=== PATIENT | female | born 1970 | race Caucasian/White ===

== ENCOUNTER 2021-10-29 10:45 | Emergency (ER) | payer OTHER, MEDICAID, SELFPAY ==
[2021-10-29] VITALS (7 sets, daily range): BP systolic 133–161; BP diastolic 73–86; PULSE 60–82; RESP 15–24; TEMP 36.6; O2SAT 96–100; BMI 35.4
--- NOTE | 2021-10-29 10:55 | DI.RAD.S_ITS ---
PROCEDURE: XR CHEST 1V INDICATIONS: chest pain TECHNIQUE: One view of the chest was acquired. COMPARISON: None. FINDINGS: Surgical changes and devices: None. Lungs and pleura: Lungs are clear. No pleural effusions or pneumothorax. Mediastinum: Mediastinal contours appear normal. Heart size is normal. Bones and chest wall: No suspicious bony lesions. Overlying soft tissues appear unremarkable. IMPRESSION: No acute cardiopulmonary findings Approved by: Reyes Duong M.D. on 10/29/2021 at 11:02
[2021-10-29 11:38] LABS: Add Manual Diff / Slide Review NO; Basophils Absolute Auto 100 /uL (0-100); Basophils Percent Auto 1.2 % (0-2); Eosinophils Absolute Auto 200 /uL (0-450); Eosinophils Percent Auto 3.5 % (2-4); Hematocrit 39.5 % (36-46); Hemoglobin 13.5 g/dL (12.0-16.0); Lymphocytes Absolute Auto 1700 /uL (1100-4500); Lymphocytes Percent Auto 24.4 % (25-40); Mean Corpuscular HGB Conc 34.2 % (30-36); Mean Corpuscular Hemoglobin 32.1 PG (26-34); Monocytes Absolute Auto 400 /uL (0-900); Neutrophils Absolute Auto 4600 /uL (1500-7000); Neutrophils Percent Auto 64.9 % (50-75); Platelet Count 335 X10^3/uL (150-400); Red Cell Distribution Width 13.5 % (11.6-14.8); White Blood Cell Count 7.1 X10^3/uL (4.5-11.0)
[2021-10-29 11:48] LABS: INR 0.9 (0.9-1.3); Prothrombin Time 10.3 SECONDS (10.1-12.7)
[2021-10-29 11:51] LABS: PTT Partial Thromboplastin Tim 28 SECONDS (26.4-36.2)
[2021-10-29 11:52] LABS: Alanine Aminotransferase 21 IU/L (<35); Albumin 4.5 g/dL (3.5-5.0); Albumin Globulin Ratio 1.4 (1.0-2.8); Alkaline Phosphatase 63 U/L (38-126); Aspartate Aminotransferase 36 IU/L (14-36); BUN Creatinine Ratio 18.4 (6-22); Bilirubin Total 0.9 mg/dL (0.2-1.3); Blood Urea Nitrogen 18 mg/dL (7-17); Calcium 8.9 mg/dL (8.4-10.2); Carbon Dioxide 27 mmol/L (22-32); Chloride 107 mmol/L (98-107); Creatine Kinase 108 U/L (30-135); Estimated Glomerular Filt Rate > 60 mL/min (>60); Globulin 3.2 g/dL (1.7-4.1); Glucose 96 mg/dL (70-100); HEMOLYSIS 26 (0-50); Lipase 83 U/L (23-300); Magnesium 2.4 mg/dL (1.6-2.3); Potassium 4.2 mmol/L (3.4-5.1); Sodium 139 mmol/L (137-145); Total Protein 7.7 g/dL (6.3-8.2)
[2021-10-29 12:03] LABS: Troponin I < 0.012 ng/mL (0.01-0.034)
[2021-10-29 12:06] LABS: Creatine Kinase MB 1.07 ng/mL (<2.37)
--- NOTE | 2021-10-29 13:44 | DI.US.S_ITS ---
PROCEDURE: US ABDOMEN LIMITED INDICATIONS: RUQ abdominal pain TECHNIQUE: Real-time focused scanning was performed of the abdomen, with image documentation. COMPARISON: [facility], CT, CT ABDOMEN WITHOUT CONTRAST, 01/19/2021, 17:25. FINDINGS: The liver demonstrates increased size. The liver demonstrates generalized mildly increased echogenicity. This decreases ultrasound sensitivity for detection of hepatic masses. No findings of gallstones or sludge are seen. The gallbladder wall is not thickened, measuring 3 mm or less. No specific pericholecystic fluid is seen. The sonographic Calero sign is negative. There is no biliary dilatation, the common bile duct measures 3 mm. No significant pancreatic abnormality is seen on these images. This study is limited by body habitus. IMPRESSION: The gallbladder demonstrates a normal sonographic appearance. No biliary dilatation is seen. The liver demonstrates increased echogenicity. This finding is nonspecific, yet it is most commonly attributed to fatty infiltration. Dictated by: Aditya Howell M.D. on 10/29/2021 at 13:27 Approved by: Aditya Howell M.D. on 10/29/2021 at 13:27
--- NOTE | 2021-10-29 13:46 | ED_ITS ---
HPI - Chest Pain <Matt Cummings PA-C - Last Filed: 10/29/21 19:46> General Chief Complaint: Chest Pain Stated Complaint: Chest pain Time Seen by Provider: 10/29/21 13:34 Source: patient Mode of arrival: Ambulatory Limitations: no limitations History of Present Illness HPI narrative: Patient is a 51-year-old female presenting to the emergency department today for evaluation of chest pain and elevated blood pressure. Patient explains that she was at work today when she began to experience sudden onset of 10/10 sharp centralized chest pain. She explains that her pain is now reduced to a 2/10 in intensity and is described as a pressure over the sternum. She states that while she was experiencing chest pain at work she took her blood pressure and noticed it was elevated, noting that her blood pressure usually is somewhere around ?128/72. Of note, patient denies any significant medical history and states she does not take any medications daily. Additionally, she denies any r ecent trauma or injury to the chest that could explain her discomfort. Patient states that during the initial episode of pain she did experience diaphoresis, however she states that she is not experience further episodes following the initial onset of pain. Further, she states that she has been experiencing right shoulder pain while she was in the waiting room. No fevers, chills, cough, shortness of breath, nausea, vomiting, diarrhea, constipation, abdominal pain, dysuria, hematuria, or any other concerning symptoms reported. No further concerns were voiced at this time. Related Data Allergies Allergy/AdvReac Type Severity Reaction Status Date / Time codeine Allergy Verified 10/29/21 10:52 Review of Systems <Matt Cummings PA-C - Last Filed: 10/29/21 19:46> Constitutional Constitutional: Denies chills, Denies fatigue, Denies fever(s), Denies frequent falls, Denies lethargy, Denies weakness and Reports other (Diaphoresis) Eyes Eyes: Denies loss of vision ENT Ears, Nose, Mouth, and Throat: Denies dizziness and Denies neck pain Cardiovascular Cardiovascular: Reports chest pain, Denies irregular heart rhythm, Denies lightheadedness, Denies palpitations, Denies dyspnea, Denies dyspnea on exertion, Denies orthopnea and Reports other (Elevated blood pressure) Respiratory Respiratory: Denies cough, Denies dyspnea, Denies dyspnea on exertion and Denies wheezing Gastrointestinal Gastrointestinal: Denies abdominal pain, Denies change in bowel habits, Denies diarrhea, Denies nausea and Denies vomiting Genitourinary Genitourinary: Denies hematuria, Denies flank pain, Denies urinary incontinence and Denies urinary urgency Musculoskeletal Musculoskeletal: Denies back pain, Reports arthralgias (Right shoulder discomfort), Denies muscle weakness, Denies neck pain, Denies numbness and Denies tingling Integumentary/Breasts Skin/Breast: Denies pruritus, Denies erythema, Denies rash and Denies wounds Neurologic Neurologic: Denies behavioral changes, Denies confusion, Denies dizziness, Denies frequent falls, Denies loss of vision, Denies numbness, Denies tingling and Denies weakness Psychiatric Psychiatric: Denies behavioral changes and Denies confusion Endocrine Endocrine: Denies fatigue and Denies palpitations Allergic/Immunologic Allergic/Immunologic: Denies wheezing Patient History <Matt Cummings PA-C - Last Filed: 10/29/21 19:46> Social History Smoking Status: Current some day smoker Smoking Status: Current some day smoker alcohol intake frequency: holidays/special occasions only Substance Use Type: does not use Exam <Matt Cummings PA-C - Last Filed: 10/29/21 19:46> Narrative Exam Narrative: GENERAL: 51 year old patient appears stated age. Well-developed patient, in no acute distress. HEAD: Atraumatic. Normocephalic. EYES: Pupils equal round and reactive. Extraocular motions intact. No scleral ic terus. No injection or drainage. ENT: Nose without bleeding, purulent drainage. Throat without erythema, tonsillar hypertrophy or exudate. Airway patent. NECK: Trachea midline. Non tender CARDIOVASCULAR: Regular rate and rhythm without murmurs, gallops, or rubs. RESPIRATORY: Clear to auscultation. Breath sounds equal bilaterally. No wheezes, rales, or rhonchi. GASTROINTESTINAL: Abdomen soft, nondistended. Tenderness to palpation appreciated in the right upper quadrant of the abdomen, no significant tenderness throughout the remaining quadrants of the abdomen. Positive Calero sign. EXTREMITIES: No edema or joint tenderness. MUSCULOSKELETAL: Tenderness to palpation over the sternum and manubrium and bilateral chest wall. No deformity or crepitance appreciated. BACK: Nontender without deformity or crepitance. No flank tenderness. NEURO: AOx3. SKIN: No rash or erythema of visible areas Initial Vital Signs Initial Vital Signs: Vital Signs Temperature 97.9 F 10/29/21 10:52 Pulse Rate 82 10/29/21 10:52 Respiratory Rate 15 10/29/21 10:52 Blood Pressure 154/82 H 10/29/21 10:52 Pulse Oximetry 96 10/29/21 10:52 Course <Matt Cummings PA-C - Last Filed: 10/29/21 19:46> Course Course Narrative: CBC, CMP, lipase, magnesium, PT/INR, PTT, troponin with repeat, chest x-ray, EKG, abdominal ultrasound obtained. Orders Ordered: ED Orders 10/29/21 13:44 US abdomen limited Stat 10/29/21 14:05 Trop I [Troponin I] Stat Vital Signs Vital signs: Vital Signs - 8 hr 10/29/21 13:32 10/29/21 13:33 10/29/21 14:00 Pulse Rate 81 81 61 Respiratory Rate 19 Blood Pressure 161/73 H Pulse Oximetry 96 97 98 10/29/21 14:01 10/29/21 14:30 10/29/21 15:00 Pulse Rate 60 63 64 Respiratory Rate 24 Blood Pressure 153/75 H 145/86 H 133/73 Pulse Oximetry 100 96 98 MDM - Chest Pain <Matt Cummings PA-C - Last Filed: 10/29/21 19:46> Lab Data Result diagrams: 10/29/21 11:25 10/29/21 11:25 Labs: Lab Results 10/29/21 10/29/21 10/29/21 Range/Units 11:25 11:25 11:25 WBC 7.1 (4.5-11.0) X10^3/uL RBC 4.20 (4.0-5.2) X10^6/uL Hgb 13.5 (12.0-16.0) g/dL Hct 39.5 (36-46) % MCV 94.0 (80-100) fL MCH 32.1 (26-34) PG MCHC 34.2 (30-36) % RDW 13.5 (11.6-14.8) % Plt Count 335 (150-400) X10^3/uL Neut % (Auto) 64.9 (50-75) % Lymph % (Auto) 24.4 L (25-40) % [place] % (Auto) 6.0 (3-14) % Eos % (Auto) 3.5 (2-4) % Baso % (Auto) 1.2 (0-2) % Neut # (Auto) 4600 (8787-6136) /uL Lymph # (Auto) 1700 (4377-9507) /uL [place] # (Auto) 400 (0-900) /uL Eos # (Auto) 200 (0-450) /uL Baso # (Auto) 100 (0-100) /uL PT 10.3 (10.1-12.7) SECONDS INR 0.9 (0.9-1.3) APTT 28 (26.4-36.2) SECONDS Sodium 139 (137-145) mmol/L Potassium 4.2 (3.4-5.1) mmol/L Chloride 107 (98-107) mmol/L Carbon Dioxide 27 (22-32) mmol/L BUN 18 H (7-17) mg/dL Creatinine 0.98 (0.52-1.04) mg/dL Estimated GFR > 60 (>60) mL/min BUN/Creatinine Ratio 18.4 (6-22) Glucose 96 (70-100) mg/dL Calcium 8.9 (8.4-10.2) mg/dL Magnesium 2.4 H (1.6-2.3) mg/dL Total Bilirubin 0.9 (0.2-1.3) mg/dL AST 36 (14-36) IU/L ALT 21 (<35) IU/L Alkaline Phosphatase 63 (38-126) U/L Total Creatine Kinase 108 (30-135) U/L CK-MB (CK-2) 1.07 (<2.37) ng/mL CK-MB (CK-2) Rel Index 1.0 L (1.5-5.0) % Troponin I < 0.012 (0.01-0.034) ng/mL Total Protein 7.7 (6.3-8.2) g/dL Albumin 4.5 (3.5-5.0) g/dL Globulin 3.2 (1.7-4.1) g/dL Albumin/Globulin Ratio 1.4 (1.0-2.8) Lipase 83 (23-300) U/L 10/29/21 Range/Units 14:05 WBC (4.5-11.0) X10^3/uL RBC (4.0-5.2) X10^6/uL Hgb (12.0-16.0) g/dL Hct (36-46) % MCV (80-100) fL MCH (26-34) PG MCHC (30-36) % RDW (11.6-14.8) % Plt Count (150-400) X10^3/uL Neut % (Auto) (50-75) % Lymph % (Auto) (25-40) % [place] % (Auto) (3-14) % Eos % (Auto) (2-4) % Baso % (Auto) (0-2) % Neut # (Auto) (9000-6346) /uL Lymph # (Auto) (0353-4536) /uL [place] # (Auto) (0-900) /uL Eos # (Auto) (0-450) /uL Baso # (Auto) (0-100) /uL PT (10.1-12.7) SECONDS INR (0.9-1.3) APTT (26.4-36.2) SECONDS Sodium (137-145) mmol/L Potassium (3.4-5.1) mmol/L Chloride (98-107) mmol/L Carbon Dioxide (22-32) mmol/L BUN (7-17) mg/dL Creatinine (0.52-1.04) mg/dL Estimated GFR (>60) mL/min BUN/Creatinine Ratio (6-22) Glucose (70-100) mg/dL Calcium (8.4-10.2) mg/dL Magnesium (1.6-2.3) mg/dL Total Bilirubin (0.2-1.3) mg/dL AST (14-36) IU/L ALT (<35) IU/L Alkaline Phosphatase (38-126) U/L Total Creatine Kinase (30-135) U/L CK-MB (CK-2) (<2.37) ng/mL CK-MB (CK-2) Rel Index (1.5-5.0) % Troponin I < 0.012 (0.01-0.034) ng/mL Total Protein (6.3-8.2) g/dL Albumin (3.5-5.0) g/dL Globulin (1.7-4.1) g/dL Albumin/Globulin Ratio (1.0-2.8) Lipase (23-300) U/L Imaging Data Chest x-ray: Radiologist's Impression: PROCEDURE:? XR CHEST 1V ? INDICATIONS:? chest pain ? TECHNIQUE:? One view of the chest was acquired.? ? COMPARISON:? None. ? FINDINGS:? ? Surgical changes and devices:? None.? ? Lungs and pleura:? Lungs are clear.? No pleural effusions or pneumothorax.? ? Mediastinum:? Mediastinal contours appear normal.? Heart size is normal.? ? Bones and chest wall:? No suspicious bony lesions.? Overlying soft tissues appear unremarkable.? ? IMPRESSION:? No acute cardiopulmonary findings ? ? ? Approved by: Reyes Duong M.D. on 10/29/2021 at 11:02? US - abdomen: Radiologist's Impression: PROCEDURE: US ABDOMEN LIMITED ? INDICATIONS:? RUQ abdominal pain ? TECHNIQUE:? Real-time focused scanning was performed of the abdomen, with image documentation.? ? COMPARISON:? [facility], CT, CT ABDOMEN WITHOUT CONTRAST, 01/19/2021, 17:25. ? FINDINGS:? The liver demonstrates increased size. The liver demonstrates generalized mildly increased echogenicity. This decreases ultrasound sensitivity for detection of hepatic masses.? ? No findings of gallstones or sludge are seen.? The gallbladder wall is not thickened, measuring 3 mm or less.? No specific pericholecystic fluid is seen.? The sonographic Calero sign is negative. ? There is no biliary dilatation, the common bile duct measures 3 mm.? ? No significant pancreatic abnormality is seen on these images.? ? This study is limited by body habitus.? ? IMPRESSION:? The gallbladder demonstrates a normal sonographic appearance. No biliary dilatation is seen. ? The liver demonstrates increased echogenicity.? This finding is nonspecific, yet it is most commonly attributed to fatty infiltration.? ? ? Dictated by: Aditya Howell M.D. on 10/29/2021 at 13:27 ? ? Approved by: Aditya Howell M.D. on 10/29/2021 at 13:27 ? MDM Narrative Medical decision making narrative: Differential diagnosis to consider but not limited to acute coronary syndrome versus myocardial infarction versus atypical chest pain versus costochondritis versus musculoskeletal chest pain versus pneumonia versus is cholelithiasis. I discussed results of imaging and lab studies with patient and informed her that no acute abnormality was identified today that would require emergent intervention or admission to the hospital. I urged the patient to follow-up with her primary care provider regarding her elevated blood pressure, and I noted that her blood pressure prior to discharge was 133/73 which is much closer to where her blood pressure normally is. She states that she is comfortable being discharged at this time. Strict return precautions were discussed with helena lewis patient prior to discharge. Patient is stable for discharge at this time. Discharge Plan Departure Patient Disposition: Home Clinical Impression: Atypical chest pain Instructions: DI for Atypical Chest Pain Activity Restrictions/Additional Instructions: *You have been diagnosed with atypical chest pain *What to do: *Please continue to take your regular medications as directed. [ ] New medication prescriptions sent to your pharmacy: [ ] [ ] New medication written as a paper prescription [X] No new medications given You were evaluated in the emergency department today for chest pain. Lab studies and imaging obtained in the emergency department today did not show signs of acute abnormality that would require emergent intervention or admission to the hospital. Surgery to follow up with her primary care provider within the next 2-3 days for further evaluation and management. I recommend checking your blood pressure daily over the next week around the same time of day to ensure that it is staying in your normal range. Do not hesitate to return to the emergency department if you experience worsening pain, unexplained sweating, pain radiating to the back, or any other concerning symptoms. *Please follow up with your primary care provider in 2-3 days, call for an appointment. Let them know you were seen in the Emergency Department and that we ask that you be seen in follow up. We will electronically transmit a record of today's note if your PCP is in our system *If you do not have a primary care provider please contact the [facility] Resource line at [phone]. They will ask some questions about your medical history and help get you set up with a doctor in the community. *Return to Emergency Department if you should have any new, worsening or concerning symptoms, such as fever greater than 101 F, shaking chills, worsening pain, persistent vomiting or other bothersome symptoms.
--- NOTE | 2021-10-29 13:48 | PC.NURSE ---
pt has pain with right upper abd pain with palpation.
--- NOTE | 2021-10-29 14:45 | PC.NURSE ---
Pt had an EKG done at triage,I watched RT perform it. When the provider was looking for it we were unable to find it. Repeat EKG being done now.
[2021-10-29 15:08] LABS: Troponin I < 0.012 ng/mL (0.01-0.034)
== END 2021-10-29 15:36 | disposition home or self-care (01) ==
PROVIDERS: Emergency Medicine; Emergency Provider Physician Assistant
DX: R07.89 Other chest pain (principal); F17.200 Nicotine dependence, unspecified, uncomplicated
CPT/HCPCS: 36415; 71045; 76705; 80053; 82550; 82553; 83690; 83735; 84484; 85025; 85610; 85730; 93005; 99283; 99284